=== PATIENT | female | born 1945 | race Caucasian/White ===

== ENCOUNTER 2018-06-05 11:24 | Emergency (ER) | payer MEDICARE, OTHER ==
[2018-06-05 12:16] VITALS: BP 141/86
--- NOTE | 2018-06-05 12:37 | UC ---
Complaint Female HPI - HPI Summary HPI Summary: Patient presents with an unremarkable past medical history. She presents today with complaints of 3 day onset dysuria and associated generalized body aches, mild abdominal and flank discomfort. She states she pushed fluids, and has been drinking cranberry juice and she though she has this "licked", she states these symptoms are consistent with previous Urinary tract infections. - History Of Current Complaint Chief Complaint: UCGU Stated Complaint: URINARY COMPLAINT Time Seen by Provider: 06/05/18 12:27 Hx Obtained From: Patient Onset/Duration: Gradual Onset, Lasting Days Timing: Intermittent Severity Initially: Mild Severity Currently: Mild Pain Intensity: 3 Character: Burning Aggravating Factor(s): Urination Associated Signs And Symptoms: Positive: Negative - Risk Factors Ectopic Risk Factor: Negative Ovarian Torsion Risk Factor: Negative - Allergies/Home Medications Allergies/Adverse Reactions: Allergies Allergy/AdvReac Type Severity Reaction Status Date / Time No Known Allergies Allergy Verified 06/05/18 12:17 PMH/Surg Hx/FS Hx/Imm Hx Previously Healthy: Yes Other History Of: Negative For: Anticoagulant Therapy - Surgical History Surgical History: Yes Surgery Procedure, Year, and Place: hysterectomy, polyp surgically removed from 1961 - Family History Known Family History: Positive: Other - Social History Occupation: Retired Lives: Alone Alcohol Use: Occasionally Alcohol Amount: 3 DRINKS PER WEEK Substance Use Type: None Smoking Status (MU): Former Smoker Amount Used/How Often: 4 CIGARETES PER DAY X 15 YEARS Have You Smoked in the Last Year: No When Did the Patient Quit Smoking/Using Tobacco: 37 YEARS AGO Review of Systems Constitutional: Negative Skin: Negative Eyes: Negative ENT: Negative Respiratory: Negative Cardiovascular: Negative Gastrointestinal: Abdominal Pain Genitourinary: Dysuria Motor: Negative Neurovascular: Negative Musculoskeletal: Negative Neurological: Negative Psychological: Negative Is Patient Immunocompromised?: No All Other Systems Reviewed And Are Negative: Yes Physical Exam Triage Information Reviewed: Yes Completion Of Physical Exam Limited Due To: Extremis Vital Signs: Initial Vital Signs Temp 98.4 F 06/05/18 12:14 Pulse 89 06/05/18 12:14 Resp 12 06/05/18 12:14 BP 141/86 06/05/18 12:14 Pulse Ox 99 06/05/18 12:14 Vital Signs Reviewed: Yes Eye Exam: Normal ENT Exam: Normal Dental Exam: Normal Neck exam: Normal Neck: Positive: 1 Respiratory Exam: Normal Cardiovascular Exam: Normal Abdominal Exam: Normal Musculoskeletal Exam: Normal Neurological Exam: Normal Psychological Exam: Normal Skin Exam: Normal Complaint Female Dx - Course Course Of Treatment: Patient UA was positive for infection, patient was treated with Keflex 500 mg bid x 7 days. - Differential Dx/Diagnosis Provider Diagnoses: uti Discharge - Sign-Out/Discharge Documenting (check all that apply): Patient Departure - Discharge Plan Condition: Stable Disposition: HOME Prescriptions: Cephalexin CAP* [Keflex CAP*] 500 mg PO BID #14 cap Patient Education Materials: Urinary Tract Infection in Older Adults (ED) Referrals: Cheri Wilkerson MD [Primary Care Provider] - Additional Instructions: Follow up with your doctor in three days. - Billing Disposition and Condition Condition: STABLE Disposition: Home
--- NOTE | 2018-06-07 18:29 | UC ---
- Progress Note Progress Note: Pt with UTI resistant to keflex sent Rx Macrobid please call pt for change in Rx [email or web address] 06/07/18 Discharge - Sign-Out/Discharge Documenting (check all that apply): Patient Departure - Discharge Plan Condition: Stable Disposition: HOME Prescriptions: Cephalexin CAP* [Keflex CAP*] 500 mg PO BID #14 cap Nitrofurantoin Monohyd/M-Cryst [Macrobid 100 mg Capsule] 100 mg PO BID #14 cap Patient Education Materials: Urinary Tract Infection in Older Adults (ED) Referrals: Cheri Wilkerson MD [Primary Care Provider] - Additional Instructions: Follow up with your doctor in three days. - Billing Disposition and Condition Condition: STABLE Disposition: Home
== END 2018-06-05 13:00 | disposition home or self-care (01) ==
LOC: UCEAST 11:24
DX: N39.0 Urinary tract infection, site not specified (principal); Z87.891 Personal history of nicotine dependence
CPT/HCPCS: 81003; 87077; 87086; 87186; 99212; G0463

== ENCOUNTER 2019-05-24 09:06 | Emergency (ER) | payer MEDICARE, OTHER ==
[2019-05-24 09:21] VITALS: BP 128/78
--- NOTE | 2019-05-24 10:33 | UC ---
Skin Complaint HPI - HPI Summary HPI Summary: 73-year-old woman comes with a chief complaint of a raised itchy vesicular rash that started right after she was working in the garden pulling weeds around [place]. Started couple days ago. It's now on both arms and her low back and also on her face. It is itchy. Feels well otherwise. - History of Current Complaint Chief Complaint: UCRash Time Seen by Provider: 05/24/19 10:28 Stated Complaint: POISON [place] Pain Intensity: 0 - Allergy/Home Medications Allergies/Adverse Reactions: Allergies Allergy/AdvReac Type Severity Reaction Status Date / Time No Known Allergies Allergy Verified 05/24/19 09:21 PMH/Surg Hx/FS Hx/Imm Hx Previously Healthy: Yes Other History Of: Negative For: Anticoagulant Therapy - Surgical History Surgical History: Yes Surgery Procedure, Year, and Place: hysterectomy, polyp surgically removed from 1961 - Family History Known Family History: Positive: Other - Social History Alcohol Use: None Alcohol Amount: 3 DRINKS PER WEEK Substance Use Type: None Smoking Status (MU): Former Smoker Amount Used/How Often: 4 CIGARETES PER DAY X 15 YEARS Have You Smoked in the Last Year: No When Did the Patient Quit Smoking/Using Tobacco: 37 YEARS AGO Review of Systems All Other Systems Reviewed And Are Negative: Yes Constitutional: Positive: Negative Skin: Positive: Other - SEE HPI Eyes: Positive: Negative ENT: Positive: Negative Respiratory: Positive: Negative Cardiovascular: Positive: Negative Gastrointestinal: Positive: Negative Motor: Positive: Negative Neurovascular: Positive: Negative Musculoskeletal: Positive: Negative Neurological: Positive: Negative Psychological: Positive: Negative Is Patient Immunocompromised?: No Physical Exam Triage Information Reviewed: Yes Appearance: Well-Appearing, No Pain Distress, Well-Nourished Vital Signs: Initial Vital Signs Temp 98 F 05/24/19 09:19 Pulse 81 05/24/19 09:19 Resp 16 05/24/19 09:19 BP 128/78 05/24/19 09:19 Pulse Ox 100 05/24/19 09:19 Vital Signs Reviewed: Yes Eye Exam: Normal Eyes: Positive: Conjunctiva Clear Neck: Positive: Supple Respiratory: Positive: No respiratory distress Musculoskeletal Exam: Normal Musculoskeletal: Positive: Strength Intact, ROM Intact Neurological: Positive: Alert Psychological: Positive: Age Appropriate Behavior Skin: Positive: Other - There is an her rash it's erythematous that slightly raised with some vesicles on both forearms and on the low back on both cheeks. The vesicles have clear fluid. Course/Dx - Diagnoses Provider Diagnosis: [place] dermatitis Discharge - Sign-Out/Discharge Documenting (check all that apply): Patient Departure All imaging exams completed and their final reports reviewed: No Studies - Discharge Plan Condition: Stable Disposition: HOME Prescriptions: methylPREDNISolone [Medrol Dosepak 4 MG*] 0 mg PO .SEE FELIX INSTRUCTION #1 felix Patient Education Materials: [place] (ED) Referrals: Cheri Wilkerson MD [Primary Care Provider] - Additional Instructions: FOLLOW UP WITH YOUR DOCTOR IF NOT COMPLETELY IMPROVED. GET RECHECKED SOONER IF YOUR CONDITION WORSENS OR ANY QUESTIONS OR CONCERNS. - Billing Disposition and Condition Condition: STABLE Disposition: Home
== END 2019-05-24 10:41 | disposition home or self-care (01) ==
LOC: UCEAST 09:06
DX: L23.7 Allergic contact dermatitis due to plants, except food (principal); Z87.891 Personal history of nicotine dependence
CPT/HCPCS: 99211; G0463

== ENCOUNTER 2019-11-19 09:59 | Emergency (ER) | payer MEDICARE, OTHER ==
--- OUTSIDE RECORDS SUMMARY | 2019-11-19 10:40 | XMS REPORT | Continuity of Care Document ---
:1945 External Reference #:[id number] Author Name Renee Alexandra, N.P. (transmitted by agent of provider Lorrie Avendaño) Address [address], [place] [address] Care Team Providers Name Role Phone [facility] Care Team Information Primary Operator [place] - Physical Therapist Cheri Wilkerson MD - Internal Care Team Information Primary Operator Medicine Problems Active Problems Provider Date Diverticular disease of colon Chelsea Velazco M.D., FACP Onset: 12/18/2010 Social History Type Date Description Comments Sex Unknown ETOH Use Occasionally consumes alcohol Tobacco Use Start: Unknown End: Patient is a former pt quit in 1978 Unknown smoker Tobacco Use Start: Unknown Smoked 4 cigs a day, started at age 18. Tobacco Use Start: Unknown Off and on smoker.` Tobacco Use Start: Unknown Not currently exposed to second hand smoke Smoking Status Reviewed: 11/06/19 Not currently exposed to second hand smoke Exercise Exercises regularly Type/Frequency Allergies, Adverse Reactions, Alerts Description No Known Drug Allergies Medications Active Medications SIG Qnty Indications Ordering Provider Date Fluticasone 2 sprays each 32gm Renee Varn, 11/06/2019 Propionate nostril qd. N.P. 50mcg/Act Suspension Trazodone HCL 1 tablet at 30tabs G47.00 Renee Varn, 11/06/2019 50mg bedtime as needed N.P. Tablets Vitamin B12 1 by mouth every 30tabs Renee Varn, 03/20/2019 1000mcg day N.P. Tablets ER Alprazolam one by mouth up to 10tabs F41.9 Renee Varn, 11/23/2018 0.25mg three times daily N.P. Tablets as needed for anxiety Clobetasol apply topically 30gm L28.0 Renee Alexandra, 09/11/2014 Propionate twice a day up to N.P. 0.05% 2 weeks, stop for Ointment 2 weeks, and repeat, as needed Probiotic 1 po qd prn 30caps Unknown Capsules Vitamin D by mouth everyday Unknown 1000Unit Tablets Multi For Her once a day Unknown Tablets History Medications Medrol .See Michael Instruction 1units Unknown 05/24/2019 - 11/05/2019 4mg TBPK Immunizations CPT Code Status Date Vaccine Reaction Lot # [id number] Given 10/06/2019 Fluzone High Dose pharmacy administered [id number] Given 11/25/2018 Fluzone High Dose 41934 Given 10/23/2016 Influ Virus Vaccine, no immediate reaction [id number] Quadrivalent, Split noted ,,.hh Virus, [place] [address] Given 10/21/2015 Pneumococcal Conjugate [id number] Vaccine 13 Valent For Intramuscular Use 46185 Given 10/21/2015 Flu Vaccine Split Virus [id number] Preservative Free For Indiv 3Yr Older 41542 Given 09/11/2014 Flu Vaccine Split Virus [id number] Preservative Free For Indiv 3Yr Older 43891 Given 12/17/2011 Pneumonia Vaccine [id number] 00694 Given 12/17/2011 Tdap - [id number] Tetanus/Diptheria/Acellul ar Pertussis 85007 Given 12/17/2011 Influenza Virus 3Yrs & [id number] Over 67792 Given 12/17/2010 Influenza Virus 3Yrs & Over 75601 Given 05/05/2010 Zoster (Zostavax) Vital Signs Date Vital Result Comment 11/06/2019 1:05pm Height 60.5 inches 5'0.50" Weight 118.00 lb Heart Rate 71 /min BP Systolic Sitting 160 mmHg BP Diastolic Sitting 84 mmHg Body Temperature 97.4 F O2 % BldC Oximetry 95 % BMI (Body Mass Index) 22.7 kg/m2 03/20/2019 3:07pm Height 60.5 inches 5'0.50" Weight 115.00 lb Heart Rate 69 /min BP Systolic 133 mmHg BP Diastolic 79 mmHg Body Temperature 98.0 F O2 % BldC Oximetry 97 % BMI (Body Mass Index) 22.1 kg/m2 Results Test Acquired Date Facility Test Result H/L Range Note Laboratory test 08/01/2019 [facility] Vitamin B12 531 pg/mL Normal 180-914 [address] [place] [address] [phone] Laboratory test 05/11/2019 [facility] Surgical SEE RESULT [address] [place] [address] [phone] Normal Range 180 to 914 Indeterminate Range 145 to 180 Deficient Range <145 2 SEE RESULT BELOW Name: GRICELDA MARQUEZ : [address]: Raghu Kaye DO Acct: [id number] Unit: [id number] AGE: 73 Location: ENDO Re05/11/19 SEX: F Status: DEP REF SPEC: [id number] RALF: 05/11/19-1215 [facility] DR: Raghu Kaye DO REQ: [id number] RECD: 05/11/19 STATUS: LÓPEZ ROBERT DR: Renee Alexandra INTERNET MARKETING DIRECTOR _ ORDERED: LEVEL 4 FINAL DIAGNOSIS Colon, transverse, biopsy: -- Tubular adenoma. -- No high grade dysplasia or malignancy. CLINICAL HISTORY History of polyps POST-OPERATIVE DIAGNOSIS Colonoscopy: to cecum; good prep; biopsy polypectomy transverse polyp; moderate diverticulosis coli left greater than right GROSS DESCRIPTION The specimen is received in formalin labeled, Biopsy Transverse Colon Polyp, and consists of a 0.4 x 0.3 x 0.3 cm anne-pink polypoid soft tissue fragment which is submitted entirely in one cassette. Signed by and Reported on: Tiffani Sims MD 05/12/19 1511 END OF REPORT DEPARTMENT OF PATHOLOGY, [address] [place] [address] Nav Buitrago M.D. Director [facility] # [id number] Procedures Date Code Description Status 05/11/2019 [id number] Colonoscopy Completed 02/10/2018 [id number] Mammogram Completed 01/26/2018 [id number] Diabetic Retinal Eye Exam Completed 12/28/2016 [id number] Mammogram Completed 05/13/2015 [id number] Mammogram Completed 04/18/2015 [id number] Diabetic Retinal Eye Exam Completed 03/08/2014 [id number] Bone Mineral Density Test Completed 03/08/2014 [id number] Mammogram Completed 04/10/2013 [id number] Colonoscopy Completed 12/22/2011 [id number] Bone Mineral Density Test Completed 06/11/2011 [id number] Mammogram Completed 11/17/2010 [id number] Mammogram Completed 05/15/2010 [id number] Mammogram Completed 07/16/2008 [id number] Colonoscopy Completed 04/12/2008 [id number] Bone Mineral Density Test Completed Medical Devices Description No Information Available Encounters Description No Information Available Assessments Date Code Description Provider 11/06/2019 H91.93 Unspecified hearing loss, bilateral Renee Alexandra, N.P. 11/06/2019 G47.00 Insomnia, unspecified Renee Alexandra, N.P. Plan of Treatment 11/06/2019 - Renee Alexandra N.P.H91.93 Unspecified hearing loss, bilateralComments:I have generated a hearing evaluation for you.G47.00 Insomnia , unspecifiedNew Medication:Trazodone HCL 50 mg - 1 tablet at bedtime as neededComments:For your insomnia I have sent in a prescription for Trazodone 50 mg. You may take 1 at bedtime as needed. Be sure you have a dark quiet room to sleep in. Avoid reading or watching television in bed. Stay off all electronic devices for at least 2 hours before bed. Functional Status Description No Information Available Mental Status Description No Information Available Referrals Description No Information Available
[2019-11-19 10:45] VITALS: BP 154/86
--- NOTE | 2019-11-19 10:59 | UC ---
Ear Complaint HPI - HPI Summary HPI Summary: 74-year-old woman comes in with chief complaint of right ear pain. She's been having upper respiratory tract infection symptoms for days. She was developing pressure in her right ear. Overnight the pain got very bad. She felt a pop in her right ear and then the pain dissipated. Did not have any drainage from the right ear. 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 She does wear hearing aids. Since she's been having right ear pain she's not using her right hearing aid. No complaint of any fevers or cough or chest congestion. She does have rhinorrhea. - History of Current Complaint Chief Complaint: UCRespiratory Stated Complaint: EAR PAIN HEAD CONGESTION Time Seen by Provider: 11/19/19 10:41 Pain Intensity: 5 - Allergies/Home Medications Allergies/Adverse Reactions: Allergies Allergy/AdvReac Type Severity Reaction Status Date / Time No Known Allergies Allergy Verified 11/19/19 10:45 Home Medications: Home Medications Multivitamin [Multivitamins] 1 cap PO DAILY 11/19/19 [History Confirmed 11/19/19 ] Naproxen Sodium [Naproxen 220 mg] 440 mg PO ONCE 11/19/19 [History Confirmed ] PMH/Surg Hx/FS Hx/Imm Hx Previously Healthy: Yes - OSAGE,HAS HEARING AIDS Other History Of: Negative For: Anticoagulant Therapy - Surgical History Surgical History: Yes Surgery Procedure, Year, and Place: hysterectomy, polyp surgically removed from 1961 - Family History Known Family History: Positive: Other - Social History Alcohol Use: Occasionally Alcohol Amount: 3 DRINKS PER WEEK Substance Use Type: None Smoking Status (MU): Former Smoker Amount Used/How Often: 4 CIGARETES PER DAY X 15 YEARS Have You Smoked in the Last Year: No When Did the Patient Quit Smoking/Using Tobacco: 37 YEARS AGO Review of Systems All Other Systems Reviewed And Are Negative: Yes Constitutional: Positive: Other - SEE HPI Skin: Positive: Negative Eyes: Positive: Negative ENT: Positive: Ear Ache, Nasal Discharge Respiratory: Positive: Negative Cardiovascular: Positive: Negative Gastrointestinal: Positive: Negative Motor: Positive: Negative Neurovascular: Positive: Negative Musculoskeletal: Positive: Negative Neurological: Positive: Negative Psychological: Positive: Negative Is Patient Immunocompromised?: No Physical Exam Triage Information Reviewed: Yes Appearance: Well-Appearing, No Pain Distress, Well-Nourished Vital Signs: Initial Vital Signs Temp 97.6 F 11/19/19 10:40 Pulse 68 11/19/19 10:40 Resp 18 11/19/19 10:40 BP 154/86 11/19/19 10:40 Pulse Ox 99 11/19/19 10:40 Vital Signs Reviewed: Yes Eye Exam: Normal Eyes: Positive: Conjunctiva Clear ENT: Positive: Pharyngeal erythema, Nasal congestion, TM bulging - RT, TM red - RT Neck: Positive: Supple Respiratory: Positive: Lungs clear, Normal breath sounds, No respiratory distress Cardiovascular: Positive: RRR Musculoskeletal: Positive: Strength Intact, ROM Intact Neurological: Positive: Alert, Muscle Tone Normal Psychological: Positive: Age Appropriate Behavior Skin Exam: Normal Ear Complaint Course/Dx - Course Course Of Treatment: Patient sees ENT Dr. Amador. She will follow-up with him this week. - Differential Dx/Diagnosis Provider Diagnosis: Right otitis media Discharge ED - Sign-Out/Discharge Documenting (check all that apply): Patient Departure All imaging exams completed and their final reports reviewed: No Studies - Discharge Plan Condition: Stable Disposition: HOME Prescriptions: Amoxicillin/Clavulanate TAB* [Augmentin TAB 875*] 875 mg PO BID #20 tab Patient Education Materials: Ear Infection (ED) Referrals: Chelsea Velazco MD [Primary Care Provider] - Isaac Amador MD [Medical Doctor] - Additional Instructions: FOLLOW UP WITH YOUR ENT DOCTOR THIS WEEK. GET REEVALUATED SOONER IF NOT IMPROVED OR WORSE OR ANY QUESTIONS OR CONCERNS. - Billing Disposition and Condition Condition: STABLE Disposition: Home
== END 2019-11-19 11:05 | disposition home or self-care (01) ==
LOC: UCEAST 09:59
DX: H66.91 Otitis media, unspecified, right ear (principal); R09.81 Nasal congestion; J34.89 Other specified disorders of nose and nasal sinuses; Z87.891 Personal history of nicotine dependence
CPT/HCPCS: 99212; G0463

== ENCOUNTER 2019-12-24 13:34 | Inpatient (IN) | payer MEDICARE, OTHER ==
--- NOTE | 2019-12-24 13:54 | ED ---
Abdominal Pain/Female - HPI Summary HPI Summary: 74 y/o female presented to [facility] for right lower quadrant abdominal pain present for days. She endorsed shortness of breath and a fever of 103F but denies rhinorrhea, sore throat, and cough. Her notes that she is in better condition than she was about an hour ago. She suspected a UTI and has previously seen Dr. Velazco for cultures that returned negative. She endorses history of diverticulitis and a polypectomy, and notes that she still has her appendix. She also notes family history of diverticulitis but no family history of hypertension, hyperlipidemia, or diabetes. 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 Negative: Cough Allergies/Adverse Reactions: Allergies Allergy/AdvReac Type Severity Reaction Status Date / Time No Known Allergies Allergy Verified 12/24/19 13:45 Home Medications: Home Medications L.acidoph,Paracasei, B.lactis [Probiotic] 1 each PO DAILY 12/24/19 [History Confirmed 12/24/19] traZODone TAB* [Desyrel TAB*] 50 mg PO BEDTIME PRN 12/24/19 [History Confirmed 12/24/19] PMH/Surg Hx/FS Hx/Imm Hx Endocrine/Hematology History: Reports: Hx Anemia - WHEN WAS MENSTRUATING Denies: Hx Anticoagulant Therapy, Hx Diabetes, Hx Thyroid Disease Cardiovascular History: Denies: Hx Hypercholesterolemia, Hx Hypertension, Hx Pacemaker/ICD, Hx Peripheral Vascular Disease GI History: Reports: Other GI Disorders - HISTORY OF DIVERTICULITIS/HX OF ELEVATED LIVER ENZYMES 15 YEARS Musculoskeletal History: Denies: Hx Arthritis, Hx Rheumatoid Arthritis, Hx Osteoporosis - OSTEOPENIA Sensory History: Reports: Hx Hearing Aid Denies: Hx Cataracts, Hx Contacts or Glasses, Hx Glaucoma Opthamlomology History: Denies: Hx Cataracts, Hx Contacts or Glasses, Hx Glaucoma Neurological History: Reports: Hx Migraine - HX OF PRIOR TO MENOPAUSE Denies: Hx Headaches, Hx Seizures, Hx Transient Ischemic Attacks (TIA) Psychiatric History: Denies: Hx Anxiety, Hx Depression, Hx Panic Disorder - Cancer History Hx Chemotherapy: No Hx Radiation Therapy: No - Surgical History Surgery Procedure, Year, and Place: hysterectomy, polyp surgically removed from 1961 Hx Anesthesia Reactions: No Infectious Disease History: No Infectious Disease History: Reports: Traveled Outside the [place] in Last 30 Days - Family History Known Family History: Negative: Hypertension, Diabetes - Social History Alcohol Use: Occasionally Alcohol Amount: 3 DRINKS PER WEEK Substance Use Type: Reports: None Smoking Status (MU): Former Smoker Amount Used/How Often: 4 CIGARETES PER DAY X 15 YEARS Have You Smoked in the Last Year: No Review of Systems Positive: Fever Negative: Sore Throat, Nasal Discharge Positive: Shortness Of Breath. Negative: Cough All Other Systems Reviewed And Are Negative: Yes Physical Exam - Summary Physical Exam Summary: VITAL SIGNS: Reviewed. GENERAL: Patient is a well-developed and nourished female who is lying comfortable in the stretcher. Patient is not in any acute respiratory distress. Patient is febrile. HEAD AND FACE: No signs of trauma. No ecchymosis, hematomas or skull depressions. No sinus tenderness. EYES: PERRLA, EOMI x 2, No injected conjunctiva, no nystagmus. EARS: Hearing grossly intact. Ear canals and tympanic membranes are within normal limits. MOUTH: Oropharynx within normal limits. NECK: Supple, trachea is midline, no adenopathy, no JVD, no carotid bruit, no c- spine tenderness, neck with full ROM. CHEST: Symmetric, no tenderness at palpation. LUNGS: Clear to auscultation bilaterally. No wheezing or crackles. CVS: Regular rate and rhythm, S1 and S2 present, no murmurs or gallops appreciated. ABDOMEN: Soft, right lower quadrant tenderness with guarding but no rebound. No signs of distention. No masses palpated. Bowel sounds are normal. EXTREMITIES: FROM in all major joints, no edema, no cyanosis or clubbing. NEURO: Alert and oriented x 3. No acute neurological deficits. Speech is normal and follows commands. SKIN: Dry and warm Triage Information Reviewed: Yes Vital Signs On Initial Exam: Initial Vitals Temp Pulse Resp BP Pulse Ox 101.9 F 132 16 114/96 94 12/24/19 13:40 12/24/19 13:40 12/24/19 13:40 12/24/19 13:40 12/24/19 13:40 Vital Signs Reviewed: Yes Procedures - Sedation Patient Received Moderate/Deep Sedation with Procedure: No Diagnostics - Vital Signs Vital Signs Temp Pulse Resp BP Pulse Ox 12/24/19 13:40 101.9 F 132 16 114/96 94 - Laboratory Result Diagrams: 12/25/19 06:30 12/25/19 06:30 Lab Statement: Any lab studies that have been ordered have been reviewed, and results considered in the medical decision making process. - Radiology chest x-ray Radiology Interpretation Completed By: Radiologist Summary of Radiographic Findings: IMPRESSION: LINEAR LEFT LOWER LUNG ZONE AND LATERAL COSTOPHRENIC ANGLE AIRSPACE. OPACIFICATION (ATELECTASIS VERSUS INFILTRATE). This report was reviewed by the ED physician. - CT abdominal/pelvis CT Interpretation Completed By: Radiologist Summary of CT Findings: IMPRESSION: 1. SUSPECT UNCOMPLICATED DIVERTICULITIS AT LEAST INVOLVING THE DISTAL DESCENDING COLON. 2. AN 8 MM LOBULATED PULMONARY NODULE IN THE LEFT LOWER LOBE IS NEW FROM 2009. A. DEDICATED CHEST CT IS REQUIRED TO GUIDE FLEISCHNER CRITERIA RECOMMENDATIONS (UNKNOWN. MULTIPLICITY). 3. PERIPORTAL EDEMA. This report was reviewed by the ED physician. - EKG 1435 Cardiac Rate: Tachycardia EKG Rhythm: Sinus Tachycardia Summary of EKG Findings: Sinus tachycardia at 107bpm. Q wave in leads III, aVF. This EKG was reviewed and interpreted by the ED physician. Abdominal Pain Fem Course/Dx - Course Course Of Treatment: 74 y/o female presented to [facility] for right lower quadrant abdominal pain present for days. She endorsed shortness of breath and a fever of 103F but denies rhinorrhea, sore throat, and cough. Her notes that she is in better condition than she was about an hour ago. She suspected a UTI and has previously seen Dr. Velazco for cultures that returned negative. She endorses history of diverticulitis and polypectomy, and notes that she still has her appendix. She also notes family history of diverticulitis but no family history of hypertension, hyperlipidemia, or diabetes. In the ED course the patient was placed in a site monitor, IV access was obtained, IV fluids started. Blood test w/o a significant abnormality except for INR 1.26, sodium 132, potassium 3.2, glucose 118, magnesium 1.6, total bili 1.5, troponin 0.10, BNP 203, CRP of 25.8. Urinalysis positive for nitrates. Therefore, the patient will be started in Rocephin for the UTI. CXR IMPRESSION: LINEAR LEFT LOWER LUNG ZONE AND LATERAL COSTOPHRENIC ANGLE AIRSPACE OPACIFICATION. Abdominal and pelvic CT IMPRESSION: 1. SUSPECT UNCOMPLICATED DIVERTICULITIS AT LEAST INVOLVING THE DISTAL DESCENDING COLON. (FAT PLANES SURROUNDING THE SIGMOID COLON ARE EFFACED AND DIFFICULT TO EVALUATE). COLONOSCOPY FOLLOWING SYMPTOMATIC RESOLUTION IS SUGGESTED. 2. AN 8 MM LOBULATED PULMONARY NODULE IN THE LEFT LOWER LOBE IS NEW FROM 2010. A. DEDICATED CHEST CT IS REQUIRED TO GUIDE FLEISCHNER CRITERIA RECOMMENDATIONS (UNKNOWN. MULTIPLICITY). 3. PERIPORTAL EDEMA. Patient was given Cipro and flagyl for diverticulitis. She was given ASA for increased troponin. I discuss my physical exam and test results with Dr. Cleary from the hospitalist services and he agrees to admit the patient to his services. The patient is hemodynamically stable alert and oriented x 3. - Diagnoses Provider Diagnoses: UTI (urinary tract infection), PNA (pneumonia), Diverticulitis, Elevated troponin - Provider Notifications Discussed Care Of Patient With: Bell Cleary Time Discussed With Above Provider: 17:16 Instructed by Provider To: Other - Patient's case was discussed with Dr. Cleary , who agrees to admit the patient. Discharge ED - Sign-Out/Discharge Documenting (check all that apply): Patient Departure - admit - Discharge Plan Condition: Stable Disposition: ADMITTED TO [facility] - Billing Disposition and Condition Condition: STABLE Disposition: Admitted to [facility] - Attestation Statements Document Initiated by Francescoe: Yes Documenting Scribe: Milan De Souza Provider For Whom Laurent is Documenting (Include Credential): Taras Carlos MD Scribe Attestation: Milan Waller, scribed for Taras Carlos MD on 12/25/19 at 1335. Scribe Documentation Reviewed: Yes Provider Attestation: The documentation as recorded by the Milan fuller accurately reflects the service I personally performed and the decisions made by me, Taras Carlos MD Status of Scribe Document: Viewed
[2019-12-24] MEDS ORDERED: NS 0.9% 1000 ML** 1,000 ML IV ONE (14:07)
[2019-12-24 14:36] LABS: ABS Basophils 0.1 10^3/ul (0-0.2); ABS Lymphocytes 0.3 10^3/ul (1.0-4.8); ABS Monocytes 0.5 10^3/ul (0-0.8); ABS Neutrophils 9.7 10^3/ul (1.5-7.7); Eosinophil % 0.1 %; Hematocrit 37 % (35-47); Hemoglobin 12.6 g/dL (12.0-16.0); Lymphocyte % 3.2 %; Mean Corpuscular HGB Conc 34 g/dL (31-36); Mean Corpuscular Hemoglobin 30 pg (27-31); Mean Corpuscular Volume 89 fL (80-97); Mean Platelet Volume 10.2 fL (7.4-10.4); Platelet Count 168 10^3/uL (150-450); Red Cell Distribution Width 14 % (10-15); White Blood Count 10.7 10^3/uL (3.5-10.8)
[2019-12-24 14:57] LABS: INR 1.26 (0.82-1.09)
[2019-12-24 15:02] LABS: ALT 20 U/L (7-52); AST 23 U/L (13-39); Albumin 3.7 g/dL (3.2-5.2); Albumin/Globulin Ratio 1.6 (1-3); Alkaline Phosphatase 92 U/L (34-104); Amylase 23 U/L (29-103); Anion Gap 7 mmol/L (2-11); BUN/Creatinine Ratio 31.7 (8-20); Blood Urea Nitrogen 19 mg/dL (6-24); CO2 Carbon Dioxide 22 mmol/L (22-32); Calcium 9.4 mg/dL (8.6-10.3); Chloride 103 mmol/L (101-111); Creatine Kinase 33 U/L (10-223); EGFR African American 117.6 (>60); EGFR Non-African American 97.2 (>60); Globulin 2.3 g/dL (2-4); Glucose 118 mg/dL (70-100); Magnesium 1.6 mg/dL (1.9-2.7); Potassium 3.2 mmol/L (3.5-5.0); Sodium 132 mmol/L (135-145)
--- OUTSIDE RECORDS SUMMARY | 2019-12-24 15:02 | XMS REPORT | Continuity of Care Document ---
:1945 External Reference #:[id number] Author Name Chelsea Velazco M.D., FACP (transmitted by agent of provider Lorrie Avendaño) Address [address], [place] [address] Care Team Providers Name Role Phone Francisco Physical Therapy Care Team Information Gl[employer]ger [phone] [place] - Physical Therapist Cheri Wilkerson MD - Internal Care Team Information [employer] Medicine Problems Active Problems Provider Date Diverticular [...] to second hand smoke Smoking Status Reviewed: 12/22/19 Not currently exposed to second hand smoke Exercise Exercises regularly Type/Frequency Allergies, Adverse Reactions, Alerts Description No Known Drug Allergies Medications Active Medications SIG Qnty Indications Ordering Date Provider Ciprofloxacin HCL 1 by mouth twice 6tabs R30.0 Chelsea Mora, 12/22/2019 250mg a day M.DPia, FACP Tablets Fluticasone Propionate 2 sprays each 32gm Renee Varn, 11/06/2019 nostril qd. N.P. 50mcg/Act Suspension Trazodone HCL 1 tablet at 30tabs G47.00 Renee Varn, 11/06/2019 50mg bedtime as needed N.P. Tablets Vitamin B12 1 by mouth every 30tabs Renee Varn, 03/20/2019 1000mcg day N.P. Tablets ER Alprazolam one by mouth up 10tabs F41.9 Renee Alexandra, 11/23/2018 0.25mg Tablets to three times N.P. daily as needed for anxiety Clobetasol Propionate apply topically 30gm L28.0 Renee Alexandra, 09/11/2014 twice a day up to N.P. 0.05% Ointment 2 weeks, stop for 2 weeks, and repeat, as needed Probiotic 1 po qd prn 30caps Unknown Capsules Vitamin D by mouth everyday Unknown 1000Unit Tablets Multi For Her once a day Unknown Tablets Immunizations CPT Code Status Date Vaccine Reaction Lot # [id number] Given 10/06/2019 Fluzone High Dose pharmacy administered 05664 Given 11/25/2018 Fluzone High Dose 62700 Given 10/23/2016 Influ Virus Vaccine, no immediate reaction [id number] Quadrivalent, Split noted ,,.hh Virus, [place] [address] Given 10/21/2015 Pneumococcal Conjugate [id number] Vaccine 13 Valent For Intramuscular Use 93315 Given 10/21/2015 Flu Vaccine Split Virus [id number] Preservative Free For Indiv 3Yr Older 69042 Given 09/11/2014 Flu Vaccine Split Virus [id number] Preservative Free For Indiv 3Yr Older 46719 Given 12/17/2011 Pneumonia Vaccine [id number] 11129 Given 12/17/2011 Tdap - [id number] Tetanus/Diptheria/Acellul ar Pertussis 32969 Given 12/17/2011 Influenza Virus 3Yrs & [id number] Over 39561 Given 12/17/2010 Influenza Virus 3Yrs & Over 81993 Given 05/05/2010 Zoster (Zostavax) Vital Signs Date Vital Result Comment 12/22/2019 11:18am Height 60.5 inches 5'0.50" Weight 117.00 lb Heart Rate 71 /min BP Systolic Sitting 138 mmHg BP Diastolic Sitting 87 mmHg O2 % BldC Oximetry 100 % BMI (Body Mass Index) 22.5 kg/m2 11/06/2019 1:05pm Height 60.5 inches 5'0.50" Weight 118.00 lb Heart Rate 71 /min BP Systolic Sitting 160 mmHg BP Diastolic Sitting 84 mmHg Body Temperature 97.4 F O2 % BldC Oximetry 95 % BMI (Body Mass Index) 22.7 kg/m2 Results Test Acquired Date Facility Test Result H/L Range Note Laboratory test 08/01/2019 [facility] Vitamin B12 531 pg/mL Normal 180-914 [address] [place] [address] [phone] 1 Normal Range 180 to 914 Indeterminate Range 145 to 180 Deficient Range <145 Procedures Date Code Description Status 05/11/2019 38981565 Colonoscopy Completed 02/10/2018 [id number] Mammogram Completed 01/26/2018 [id number] Diabetic Retinal Eye Exam Completed 12/28/2016 [id number] Mammogram Completed 05/13/2015 [id number] Mammogram Completed 04/18/2015 [id number] Diabetic Retinal Eye Exam Completed 03/08/2014 [id number] Bone Mineral Density Test Completed 03/08/2014 [id number] Mammogram Completed 04/10/2013 [id number] Colonoscopy Completed 12/22/2011 [id number] Bone Mineral Density Test Completed 06/11/2011 [id number] Mammogram Completed 11/17/2010 [id number] Mammogram Completed 05/15/2010 [id number] Mammogram Completed 07/16/2008 [id number] Colonoscopy Completed 04/12/2008 [id number] Bone Mineral Density Test Completed Medical Devices Description No Information Available Encounters Type Date Location Provider Dx Diagnosis Office Visit 11/06/2019 Software Sales Manager Internal Renee Alexandra, G47.00 Insomnia, 1:00p Medicine - Ccmob N.P. unspecified H69.90 Unspecified Eustachian tube disorder, unspecified ear H91.93 Unspecified hearing loss, bilateral Assessments Date Code Description Provider 12/22/2019 R30.0 Dysuria Chelsea Velazco M.D., FACP 11/06/2019 G47.00 Insomnia, unspecified Renee Alexandra, N.P. 11/06/2019 H69.90 Unspecified Eustachian tube disorder, Renee Alexandra, N.P. unspecified ear 11/06/2019 H91.93 Unspecified hearing loss, bilateral Renee Arsenion, N.P. Plan of Treatment 12/22/2019 - Chelsea Velazco M.D., FACPR30.0 DysuriaNew Medication:Ciprofloxacin HCL 250 mg - 1 by mouth twice a dayComments:URINARY SYMPTOMS:It is possible that your symptoms are consistent with an uncomplicated UTI, howeverthere was not musch evidence on examination of your urine today. I understand that as of this morning you are not having the burning sensation. Should this recur, take the antibiotic. If you continue to be fine, don't.(Cipro sent to to your pharmacy.)You should do your best to keep well hydrated. There is a substance in cranberries that makes the bacteria common to these infections less "sticky" so you may want to try drinking crnberry juice.Call back if symptoms do not fully resolve: should consider a pelvic exam under such circumstances. Functional Status Description No Information Available Mental Status Description No Information Available Referrals Description No Information Available
--- OUTSIDE RECORDS SUMMARY | 2019-12-24 15:02 | XMS REPORT | Continuity of Care Document ---
:1945 External Reference #:[id number] Author Name Estela Benoit PA-C Address [address] [place] [address] Care Team Providers Name Role Phone Chelsea Velazco M.D. 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 Social History Type Date Description Comments Sex Unknown Tobacco Use Start: Unknown End: Former Cigarette Smoker Packs for 13 years Unknown Daily 1/2 Tobacco Use Start: Unknown quit at age 32 Tobacco Use Start: Unknown End: current.no Unknown Tobacco Use Start: Unknown End: current.no Unknown Smokeless Tobacco current.no ETOH Use Current Alcohol Use Occasionally Tobacco Use Start: Unknown End: Patient is a former smoker Unknown Smoking Status Reviewed: 11/23/19 Patient is a former smoker Allergies, Adverse Reactions, Alerts Description No Known Drug Allergies Medications Active Medications SIG Qnty Indications Ordering Provider Date Prednisone 3 tabs po every 18tabs H65.01 Isaac Pisano 11/24/2019 10mg Tablets day x3 d, then 2 MD Perry tabs po every day x3d, then 1 tab po qd x3d, then off Fluticasone Propionate 2 sprays each 16gm Isaac Pisano 03/03/2018 nostril daily MD Perry 50mcg/Act Suspension Multivitamins 1 tab daily Unknown Rhinocort Aqua as needed Unknown Amoxicillin/Clavulanat 1 by mouth twice Unknown e Potassium a day for 10 875-125mg days Tablets Immunizations Description No Information Available Vital Signs Date Vital Result Comment 11/24/2019 9:01am Weight 122.00 lb Weight 55.339 kg Height 61.50 inches 5'1.50" Height in cm's 156.2 cm BMI (Body Mass Index) 22.7 kg/m2 04/20/2018 2:38pm Weight 122.00 lb Weight 55.339 kg Height 61.50 inches 5'1.50" Height in cm's 156.2 cm BMI (Body Mass Index) 22.7 kg/m2 Results Description No Information Available Procedures Date Code Description Status 11/24/2019 05326 Tympanometry Completed Medical Devices Description No Information Available Encounters Description No Information Available Assessments Date Code Description Provider 11/24/2019 H65.01 Acute serous otitis media, right ear BALWINDER Watts-C Plan of Treatment 11/24/2019 - BALWINDER Watts-CH65.01 Acute serous otitis media, right earNew Medication:Prednisone 10 mg - 3 tabs po every day x3 d, then 2 tabs po every day x3d, then 1 tab po qd x3d, then off Functional Status Description No Information Available Mental Status Description No Information Available Referrals Description No Information Available
[2019-12-24] MEDS ORDERED: Magnesium Sulfate 1 GM IV* 1 GM/100 ML BAG IV ONE (15:14)
[2019-12-24] MEDS ORDERED: cefTRIAXone(*) 1 GM in NS 0.9% 50 ML* 50 ML IVPB ONE (16:04)
[2019-12-24 16:06] LABS: Urine Bacteria 1+ (Absent); Urine Red Blood Cell 1+(3-5/hpf) (Absent); Urine Squamous Epithelial Cell Present (Absent); Urine White Blood Cell 3+(>20/hpf) (Absent)
[2019-12-24 16:25] LABS: Urine Appearance Cloudy; Urine Color Straw; Urine Ketones Negative (Negative); Urine Urobilinogen Negative (Negative)
[2019-12-24 16:26] LABS: Urine Bilirubin Negative (Negative); Urine Blood 2+ (Negative); Urine Glucose Negative (Negative); Urine Nitrite Positive (Negative); Urine Protein 1+(30 mg/dL) (Negative)
[2019-12-24] MEDS ORDERED: Iohexol 300* (CONTRAST) 10 ML SDV IV ONE (16:39)
[2019-12-24] MEDS ORDERED: Ciprofloxacin 400MG IVPREMIX(* 400 MG/200 ML BAG IVPB ONE (17:15)
[2019-12-24] MEDS ORDERED: metroNIDAZOLE TAB* 250 MG PO ONE (17:15)
[2019-12-24] MEDS ORDERED: Piperacillin/Tazobac ADVAN(*) 3.375 GM in NS 0.9% 100 ML* 100 ML IVPB ONE (17:50)
[2019-12-24] MEDS ORDERED: PROCHLORPERAZINE INJ 5 MG/ML 2 ML VIAL IV PRN (17:51)
[2019-12-24] MEDS ORDERED: Magnesium Sulfate 2 GM IV* 2 GM/50 ML BAG IVPB ONE (17:51)
[2019-12-24] MEDS ORDERED: NS 0.9% 1000 ML** 1,000 ML IV SCH (18:00)
[2019-12-24] MEDS ORDERED: Zosyn per Pharmacy* NOTE FOLLOW UP SCH (18:00)
[2019-12-24] MEDS: Acetaminophen TAB* 325 MG PO PRN (18:29)
[2019-12-24 18:37] LABS: Troponin I 0.39 ng/mL (<0.03)
--- NOTE | 2019-12-24 20:05 | HP ---
CC: Dr. Chelsea Velazco * HISTORY AND PHYSICAL: DATE OF ADMISSION: 12/24/19 TIME OF EVALUATION: 5:30 p.m. PRIMARY CARE PROVIDER: Chelsea Velazco MD. CHIEF COMPLAINT: Burning urination. HISTORY OF PRESENT ILLNESS: Ms. Marquez is a 74-year-old female with past medical history of diverticulosis, osteopenia, who presents to the emergency room with complaints of abdominal pain and burning with urination. The patient has recently returned from a trip to [place] and she states that she developed initially burning with urination. She was seen by her primary care provider on 12/22/19, and at that time, her urinary symptoms were improving, so she initially did not get the ciprofloxacin that her PCP had prescribed. She states that today she felt very poor with right lower quadrant pain, fever up to 103, and shaking chills. She denies nausea, vomiting, or diarrhea. There is no chest pain, shortness of breath, or palpitations and she states that dysuria has resumed today, so she actually went and picked up her ciprofloxacin but has not taken it yet. PAST MEDICAL HISTORY: 1. Diverticulosis with prior history of diverticulitis. 2. Colon polyps. 3. Osteopenia. MEDICATIONS: The patient does not have her medication list with her at this time, but as per her PCP's note, she takes only a multivitamin once a day. ALLERGIES: No known drug allergies. FAMILY HISTORY: The patient states that her parents of old age. SOCIAL HISTORY: The patient was a smoker since age 18 and she quit in 1978. No history of alcohol or drug use. Surrogate decision maker is her son Rodriguez Smallwood, phone number is [phone]. REVIEW OF SYSTEMS: A 14-point review of systems was performed, and all the pertinent negatives and positive findings are in the HPI. PHYSICAL EXAMINATION GENERAL: The patient is a pleasant, elderly lady, lying in the ED stretcher, in no acute distress. VITAL SIGNS: Temperature 101.9, heart rate 90, respiratory rate 16, oxygen saturation 95% on room air, and blood pressure is 105/64. HEENT: Pupils are equal. Moist mucous membranes. CHEST: Breath sounds bilaterally with no added sounds. CVS: Normal S1, S2. Regular rate and rhythm. ABDOMEN: Soft, nondistended. Mild right lower quadrant tenderness with no guarding or rebound. Bowel sounds are present. EXTREMITIES: No edema. NEURO: The patient is alert, awake, oriented x3. Speech is clear. She is a little hard of hearing but is able to understand our conversations. She can move all 4 extremities. Face is symmetric. Speech is clear. LABORATORY AND IMAGING DATA: The patient had a CBC that showed WBC 10.7, hemoglobin 12.6, hematocrit 37, platelets of 168 with 90% neutrophils. INR 1.2. Chemistry showed sodium 132, potassium 3.2, chloride 103, bicarb 22, BUN 19, creatinine of 0.6, glucose of 118, lactic acid 1.7, calcium 9.4, magnesium 1.6. Total bili 1.5, AST 23, ALT 20, alk phos 92. CPK 33. Troponin 0.1. CRP 45. BNP 203. Amylase 23, lipase is 10. Urinalysis shows 1+ protein, 2+ blood. Positive nitrite. 2+ LE, 3+ wbc's, 1+ rbc's, 1+ bacteria. Chest x-ray shows linear left lower lung zone and lateral costophrenic angle air space opacification. CT of the abdomen and pelvis shows findings suggestive of uncomplicated diverticulitis at least involving the distal descending colon and an 8-mm lobulated pulmonary nodule in the left lower lobe, new from 2010, some periportal edema but the gallbladder did not show any calcified gallstones and bile ducts were not distended. EKG done on 12/24/19 at 2:33 p.m. shows sinus tachycardia 107 beats per minute with no acute ischemic changes. No prior EKG to compare. ASSESSMENT AND PLAN: Ms. Marquez is a 74-year-old female with a past medical history of diverticulosis with a prior episode of diverticulitis, osteopenia, who presents to the emergency room with complaints of dysuria, abdominal pain, found to have urinary tract infection and mild diverticulitis. 1. Sepsis. The patient met sepsis criteria on admission with fever and tachycardia. The source is her urinary tract infection and diverticulitis. We will continue supportive care. 2. Diverticulitis. She has findings of diverticulitis on CT. I believe most of her symptoms are associated with her urinary tract infection. The patient will be started on low-fiber diet, and she will also receive Zosyn, that should cover both urinary tract infection and diverticulitis. 3. Urinary tract infection. CT of the abdomen did not show renal calculi or hydronephrosis. With her history of fever of 103 associated with severe shaking chills, I am concerned that she may be bacteremic. Blood cultures were already sent from the emergency room and we will continue Zosyn. 4. Troponin elevation. The patient has no complaints of chest pain, palpitation, or shortness of breath and her EKG shows no acute ischemic changes. First troponin was 0.1, and I suspect this is likely secondary to demand ischemia in the setting of sepsis. We will check serial troponins, and she will have a transthoracic echocardiogram looking for wall motion abnormalities. 5. Hypomagnesemia/hypokalemia. We will replete. 6. DVT prophylaxis: The patient has score of 3 on the DVT Prophylaxis Risk Assessment Guide. She will be started on subcutaneous heparin. 7. Code status is full. TIME SPENT: Approximately 60 minutes was spent on patient interview, medical records review, physical examination to complete this admission, more than half this time was spent [id number] with the patient and coordination of care. [id number]/[facility] #: [id number] [facility]
[2019-12-24] MEDS: KCL 10 MEQ/50 ML IVPREMIX* 10 MEQ/50 ML BAG IV SCH ×3 (20:38→23:00)
[2019-12-24 21:41] LABS: Troponin I 0.38 ng/mL (<0.03)
[2019-12-24] MEDS: Heparin VIAL(*) 5000 UNITS/ML VIAL (FIVE THOUSAND) SUBCUT SCH (23:00)
[2019-12-25] MEDS: ZOSYN 3.375 GM Q8H per EXTENDED INFUSION IVPB SCH ×8 (00:30→21:55)
[2019-12-25 00:56] LABS: Troponin I 0.32 ng/mL (<0.03)
[2019-12-25] MEDS: Heparin VIAL(*) 5000 UNITS/ML VIAL (FIVE THOUSAND) SUBCUT SCH ×3 (06:27→21:56)
[2019-12-25 07:07] LABS: ABS Eosinophils 0.1 10^3/ul (0-0.6); ABS Neutrophils 8.5 10^3/ul (1.5-7.7); Eosinophil % 0.5 %; Hematocrit 35 % (35-47); Hemoglobin 11.9 g/dL (12.0-16.0); Lymphocyte % 9.7 %; Mean Corpuscular HGB Conc 34 g/dL (31-36); Mean Corpuscular Hemoglobin 30 pg (27-31); Mean Corpuscular Volume 90 fL (80-97); Mean Platelet Volume 10.8 fL (7.4-10.4); Platelet Count 155 10^3/uL (150-450); Red Blood Count 3.93 10^6 /uL (3.70-4.87); Red Cell Distribution Width 15 % (10-15); White Blood Count 10.7 10^3/uL (3.5-10.8)
[2019-12-25 07:21] LABS: BUN/Creatinine Ratio 26.8 (8-20); Calcium 8.4 mg/dL (8.6-10.3); EGFR African American 127.4 (>60); EGFR Non-African American 105.3 (>60); Potassium 3.5 mmol/L (3.5-5.0)
--- NOTE | 2019-12-25 10:28 | ECHO ---
*[facility]* [place] [address] Fax #: [phone] Transthoracic Echocardiogram Patient: Gricelda Marquez : 1945 Study Date: 12/25/2019 Age: 74 Gender: F HR: 71 bpm Height: 62 in /157.5 cm BSA: 1.49 m^2 Weight: 111.8 lb /50.8 kg BMI: 20.5 kg/m^2 *Underliner: * Georgiana Hall RDCS RN *Referring Physician: * Bell NewsomeReading Physician: * Kj Alvarenga MD Indications: Elevated troponin levels. SOB. History: Diverticulosis. Osteopenia. Conclusions Summary: - Left ventricle: Systolic function is normal. The estimated ejection fraction is 60-65%. Wall motion is normal; there are no regional wall motion abnormalities. - Right ventricle: Systolic function is normal. - Mitral valve: There is mild to moderate regurgitation. - Aortic valve: The findings are consistent with mild stenosis. The peak systolic velocity is 2.1 m/sec. - Tricuspid valve: There is moderate-severe regurgitation. - Ascending aorta: The ascending aorta is mild-moderately dilated at 4.3 cm. - Pulmonary arteries: Systolic pressure is mildly increased, estimated to be 42 mm Hg. - Study data: No prior study is available for comparison. Study data: Transthoracic echocardiogram. Procedure: Transthoracic echocardiography was performed. Image quality was fair. Complete 2D, spectral Doppler, and color flow Doppler. Location: Bedside. Patient status: Observation. Patient room number: 450-01. No prior study is available for comparison. Findings Left ventricle: The cavity size is trivially reduced. Wall thickness is normal. Systolic function is normal. The estimated ejection fraction is 60-65%. Wall motion is normal; there are no regional wall motion abnormalities. There is no consistent Doppler evidence of clinically significant diastolic dysfunction. Right ventricle: The cavity size is normal. Systolic function is normal. Left atrium: The atrium is normal in size. Right atrium: The atrium is normal in size. Mitral valve: The leaflets are mildly thickened. There is no evidence of stenosis. There is mild to moderate regurgitation. Aortic valve: Not well visualized. The leaflets are mildly thickened. The findings are consistent with mild stenosis. There is no significant regurgitation. Tricuspid valve: The leaflets are normal thickness. There is no evidence of stenosis. There is moderate-severe regurgitation. Pulmonic valve: Not well visualized. There is no evidence of stenosis. There is trace regurgitation. Aorta: Aortic root: The aortic root is not dilated. Ascending aorta: The ascending aorta is mild-moderately dilated at 4.3 cm. Aortic arch: The aortic arch is not dilated. Pericardium: There is no significant pericardial effusion. Pulmonary arteries: Not well visualized. Systolic pressure is mildly increased, estimated to be 42 mm Hg. Systemic veins: Inferior vena cava: The vessel is dilated. There is (>= 50%) respiratory change in the IVC dimension. Measurements Left ventricle Value Ref Aortic valve Value Ref RACHEAL, LAX (L) 3.7 cm 3.8 - 5.2 Mango diam, ED 1.6 cm ---- ESD, LAX 2.6 cm 2.2 - 3.5 Peak v, S 2.1 m/sec ---- FS, LAX 29 % 27 - 45 VTI, S 43.8 cm ---- PW, ED (H) 1.0 cm 0.6 - 0.9 Mean grad, S 10.0 mm Hg ---- IVS/PW, ED 1 Peak grad, S 18.0 mm Hg ---- E', lat mango, TDI 10.2 cm/sec >=10.0 LVOT/AV, VTI ratio 0.45 --- - E/e', lat mango, 8 CLARENCE, VTI 1.30 cm^2 ---- TDI CLARENCE, Vmax 1.40 cm^2 ---- E', med mango, TDI 8.9 cm/sec >=7.0 E/e', med mango, 9 Mitral valve Value Ref TDI Peak E 0.78 m/sec ---- E', avg, TDI 9.6 cm/sec Peak A 0.93 m/sec ---- E/e', avg, TDI 8 <=14 Decel time 208 ms --- - Peak grad, D 2.4 mm Hg ---- LVOT Value Ref Peak E/A ratio 0.8 ---- Diam, S 1.90 cm Area 2.8 cm^2 Pulmonic valve Value Ref Peak ari, S 1.03 m/sec Peak v, S 0.8 m/sec ---- VTI, S 19.6 cm Peak grad, S 3.0 mm Hg ---- Mean grad, S 2 mm Hg SV 56 ml Tricuspid valve Value Ref SV/bsa 38 ml/m^2 Peak RV-RA grad, S 34 mm Hg ---- Max TR ari 2.9 m/sec ---- Ventricular septum Value Ref IVS, ED (H) 1.0 cm 0.6 - 0.9 Aortic root Value Ref Root diam 3.4 cm <3.8 Right ventricle Value Ref RACHEAL, LAX 2.8 cm Ascending aorta Value Ref RACHEAL minor ax, A4C 2.9 cm 1.9 - 3.5 AAo AP diam, S 4.3 cm ---- mid Pressure, S 42 mm Hg Aortic arch Value Ref Arch diam 2.5 cm ---- Left atrium Value Ref AP dim, ES 3.20 cm 2.70 - Decending aorta Value Ref 3.80 Olivia peak ari 0.58 m/sec ---- ML dim, A4C 4.2 cm SI dim, A4C 4.4 cm Pulmonary artery Value Ref Vol/bsa, ES, 1-p 26 ml/m^2 11 - 40 Pressure, S 42.0 mm Hg ---- A4C Vol/bsa, ES, A/L 33 ml/m^2 16 - 34 Inferior vena cava Value Ref Diam 2.6 cm ---- Right atrium Value Ref ML dim, ES, A4C 3.8 cm 2.6 - 4.4 SI dim, ES, A4C 4.5 cm 3.4 - 5.3 Estimated RAP 8 mm Hg Legend: (L) and (H) nithya values outside specified reference range. Prepared and electronically signed by Kj Alvarenga MD 12/25/2019 10:28
[2019-12-25] MEDS ORDERED: NS 0.9% 1000 ML** 1,000 ML IV ONE (13:18)
[2019-12-25] MEDS: Lactobacillus Acidophilus* 1 TAB PO SCH (17:42)
[2019-12-25 17:49] LABS: Magnesium 2.1 mg/dL (1.9-2.7)
--- NOTE | 2019-12-25 20:10 | PN ---
Subjective Date of Service: 12/25/19 Interval History: Is having no urinary symptoms. Abdominal pain is mild, denies nausea or vomiting , though reports having had 4 liquid BMs this morning, which is new for her. Denies chest pain, palpitations, shortness of breath. Family History: Unchanged from Admission Social History: Unchanged from Admission Past Medical History: Unchanged from Admission Objective Active Medications: Acetaminophen (Tylenol Tab*) 650 mg PO Q6H PRN PRN Reason: MILD PAIN or TEMP > 100.4 Last Admin: 12/24/19 18:29 Dose: 650 mg Heparin Sodium (Porcine) (Heparin Vial(*)) 5,000 units SUBCUT Q8HR [facility] Last Admin: 12/25/19 13:02 Dose: 5,000 units Sodium Chloride (Ns 0.9% 1000 Ml) 1,000 mls @ 100 mls/hr IV PER RATE [facility] Piperacillin Sod/Tazobactam (Sod 3.375 gm/ Sodium Chloride) 100 mls @ 25 mls/ hr IVPB Q8H [facility] Last Admin: 12/25/19 14:57 Dose: 25 mls/hr Lactobacillus Rhamnosus (Lactobacillus Acidophilus*) 1 tab PO DAILY [facility] Last Admin: 12/25/19 17:42 Dose: 1 tab Pharmacy Consult (Zosyn Per Pharmacy*) 1 note FOLLOW UP .ZOSYN PER PHARMACY [facility] Prochlorperazine Edisylate (Compazine Inj*) 5 mg IV Q6H PRN PRN Reason: NAUSEA/VOMITING Vital Signs - 8 hr 12/25/19 15:00 Temperature 99.2 F Pulse Rate 74 Respiratory 20 Rate Blood Pressure 116/66 (mmHg) O2 Sat by Pulse 92 Oximetry Oxygen Devices in Use Now: None Appearance: This is a well developed female seen sitting up in bed, no acute distress noted. Eyes: No Scleral Icterus, PERRLA Ears/Nose/Mouth/Throat: NL Teeth, Lips, Gums, Clear Oropharnyx, - - Mucous membranes slightly dry. Neck: NL Appearance and Movements; NL JVP, Trachea Midline Respiratory: Symmetrical Chest Expansion and Respiratory Effort, Clear to Auscultation, - - Diminished in bases Cardiovascular: NL Sounds; No Murmurs; No JVD, RRR, No Edema Abdominal: NL Sounds; No Tenderness; No Distention Lymphatic: No Cervical Adenopathy Extremities: No Edema, No Clubbing, Cyanosis Skin: No Rash or Ulcers, No Nodules or Sclerosis Neurological: Alert and Oriented x 3 Lines/Tubes/Other Access: Clean, Dry and Intact Peripheral IV Result Diagrams: 12/25/19 06:30 12/25/19 06:30 Microbiology and Other Data: Microbiology 12/25/19 15:30 Stool Gross Appearance - Final Stool C. difficile DNA Amplification - Final 027 Presumptive NEGATIVE Toxigenic C.diff NEGATIVE Stool Occult Blood (MARIEL) - Final 12/24/19 13:57 Aerobic Blood Culture - Preliminary Blood Venous No Growth Day 1 Anaerobic Blood Culture - Preliminary No Growth Day 1 12/24/19 14:24 Aerobic Blood Culture - Preliminary Blood Venous No Growth Day 1 Anaerobic Blood Culture - Preliminary No Growth Day 1 12/24/19 15:31 Urine Culture - Preliminary Urine Escherichia Coli Assess/Plan/Problems-Billing Assessment: This is a 74 year old female with a past medical history significant for diverticulosis and osteopenia who was admitted 12/24/19 for UTI and diverticulitis. - Patient Problems (1) UTI (urinary tract infection) Current Visit: Yes Status: Acute Comment: -Is having no symptoms, but urine culture is positive for E. coli. Continue treating with zosyn. -Temperature has gone as high as 99.2F, improved from yesterday, can likely go home in AM with transisiotn to oral ABX. (2) Diverticulitis Current Visit: Yes Status: Acute Code(s): K57.92 - DVTRCLI OF INTEST, PART UNSP, W/O PERF OR ABSCESS W/O BLEED SNOMED Code(s): 994348687 Comment: -Is having loose stools today after initiation of zosyn. Negative for CDIFF. Started lactobacillus. Tolerating low residue diet, no nausea. -Continue zosyn. (3) Elevated troponin Current Visit: Yes Status: Acute Code(s): R79.89 - OTHER SPECIFIED ABNORMAL FINDINGS OF BLOOD CHEMISTRY SNOMED Code(s): 300536372 Comment: - Peaked at 0.34. Is having no S&S of ACS. Likely due to demand. (4) Electrolyte disturbance Current Visit: Yes Status: Acute Code(s): E87.8 - OTH DISORDERS OF ELECTROLYTE AND FLUID BALANCE, NEC SNOMED Code(s): 049050675 Comment: -Intially had hypokalemia and hypomagnesemia, which is now resolved. (5) DVT prophylaxis Current Visit: Yes Status: Acute Code(s): Z29.9 - ENCOUNTER FOR PROPHYLACTIC MEASURES, UNSPECIFIED SNOMED Code(s): 865190180 Comment: -Continue heparin SQ (6) Full code status Current Visit: Yes Status: Acute Code(s): Z78.9 - OTHER SPECIFIED HEALTH STATUS SNOMED Code(s): 210812780 Status and Disposition: Condition: Fair Dispo: Admit OBV to 4S. Attending: Ana Maria De Leon
[2019-12-26] MEDS: Acetaminophen TAB* 325 MG PO PRN (03:39)
[2019-12-26] MEDS: ZOSYN 3.375 GM Q8H per EXTENDED INFUSION IVPB SCH ×4 (06:19→14:28)
[2019-12-26] MEDS: Heparin VIAL(*) 5000 UNITS/ML VIAL (FIVE THOUSAND) SUBCUT SCH ×2 (06:20→12:45)
[2019-12-26] MEDS: Lactobacillus Acidophilus* 1 TAB PO SCH (07:24)
[2019-12-26 12:17] VITALS: BP 128/81
--- NOTE | 2019-12-26 21:07 | DS ---
CC: Dr. Chelsea Velazco * DISCHARGE SUMMARY: DATE OF ADMISSION: 12/24/19 DATE OF DISCHARGE: 12/26/19 PRIMARY CARE PROVIDER: Dr. Chelsea Velazco. DISPOSITION AT DISCHARGE: Home. CONDITION ON DISCHARGE: Stable. DISCHARGE DIAGNOSES: 1. Acute diverticulitis. 2. Extended-spectrum beta-lactamase associated Escherichia coli. 3. Troponin elevation up to 0.39, likely was a demand ischemia. 4. Tkhm-cm-enoiycfc mitral regurgitation, mild pulmonary hypertension noted on echocardiogram, as well as moderate tricuspid regurgitation. 5. An 8-mm lung nodule in the left lung. MEDICATIONS AT DISCHARGE: Include: 1. Vitamin D3 1000 units daily. 2. Vitamin B12 1000 mcg daily. 3. Probiotic 1 capsule a day. 4. Multivitamin 1 tablet daily. 5. Trazodone 50 mg at bedtime. 6. Metronidazole 500 mg 3 times a day for total of 7 days, then stop. 7. Bactrim DS 1 tablet b.i.d. for a total of 7 days, then stop. 8. Premarin cream 1 application nightly. LABORATORY DATA AND STUDIES PERFORMED DURING THE HOSPITAL STAY: Included, the urine cultures were positive for over 100,000 colonies of ESBL E. coli with the bacteria being sensitive to Bactrim, as also nitrofurantoin and levofloxacin. Stool cultures were negative for C. difficile. Stool occult blood was negative. CT of abdomen and pelvis obtained on admission, impression: "Suspect uncomplicated diverticulitis at least involving the distal descending colon. Fat planes surrounding the sigmoid colon are effaced and difficult to evaluate. Colonoscopy following symptomatic resolution is suggested. An 8-mm lobulated pulmonary nodule in the left lower lobe is new from 2009. An dedicated chest CT is required to guide Fleischner criteria recommendation, unknown multiplicity. Periportal edema." The patient's transthoracic echocardiogram obtained at admission showed EF of 60 % to 65% with no wall motion abnormality. The mitral valve had mild-to- moderate regurgitation; aortic valve had mild stenosis; tricuspid valve, there is moderate- to-severe regurgitation. The ascending aorta is mildly to moderately dilated at 4.3 cm. Pulmonary systolic pressure at 42 mm, which is mildly increased. On 12/25/19, sodium of 138, potassium of 3.5, chloride 111, carbon dioxide 22, BUN 15, creatinine is 0.56. CBC: White blood cell count of 10.7, hemoglobin 11.9, hematocrit 35, and platelets of 155. Blood cultures were negative by the date of discharge. The patient's troponin peaked at 0.39. HOSPITALIZATION COURSE: Gricelda Marquez is a 74-year-old female, who presented to the hospital complaining of right-sided abdominal pain, diarrhea, nausea, and suprapubic tenderness as well as dysuria symptoms. The patient stated that she was on a vacation in [place] and returned approximately a week ago. She stated that when she is in formerly [facility], the skin is so dry that she actually uses a mineral oil for personal hygiene and does not use soap. She started having dysuria symptoms approximately a couple of days prior to her hospital stay. On the day when she presented to the hospital, she had a temperature of 103 degrees at home. She complained of suprapubic tenderness, the right-sided abdominal pain and diarrhea as well as symptoms of severe frequency and pain with urination. She was admitted to the hospital and treated with Zosyn. Eventually, her urine cultures were positive ESBL E. coli. The CT as above showed mild diverticulitis. Her symptoms all resolved by the time of discharge after treatment with Zosyn. She is going to be placed on Bactrim and Flagyl to treat her diverticulitis, and Bactrim is also a good choice for the patient's ESBL E. coli UTI treatment. Although she was asymptomatic from cardiac standpoint, her troponin was up to 0.39. A transthoracic echocardiogram showed some valvular abnormalities, but no wall motion abnormality to suggest ischemia. It is suspected that the patient had demand ischemia from her UTI. Nevertheless, it is recommended for the patient to be at some point evaluated by collection technician in regards of her valvular abnormalities and to be evaluated with treadmill stress test for possibility of cardiac ischemia. The patient also was noted to have an 8-mm left lung nodule, for which she needs to have a followup CT dedicated to the chest only. In regards of the patient's problems with frequent UTIs and vaginal dryness, it was recommended for the patient to be using Premarin cream, which was prescribed. PHYSICAL EXAM AT THE TIME OF DISCHARGE: Blood pressure 148/81, heart rate of 67 and regular, respiratory rate 20, oxygen saturation 99% on room air, temperature 98.2. General: The patient is a pleasant 74-year-old female who is in no acute distress. The patient is alert and oriented x3. HEENT: Head atraumatic, normocephalic. Eyes: Pupils equal and reactive to light and accommodation. Oropharynx clear. Mucosa moist. Neck: Supple. No JVD. No bruits bilaterally. Cardiovascular: Regular rate and rhythm. No murmur. Respiratory: Clear to auscultation bilaterally. Abdomen: Soft, nontender. Bowel sounds present in all 4 quadrants. Extremities: There is no edema. Pulses +2 bilaterally. No clubbing or cyanosis. Neuro Evaluation: Speech clear. Cranial nerves II through XII grossly intact. Motor strength is 5/5 bilaterally. FOLLOWUP: At discharge, the patient is recommended to follow up with Dr. Chelsea Velazco in approximately 4 to 7 days. Please note this is a short summary of the patient's hospital stay. Please refer to further medical records for details. [id number]/CPS #: [id number] MTDD
== END 2019-12-26 15:15 | disposition home or self-care (01) | DRG 690 ==
LOC: ED 13:34 → MEDTELE 17:47 → OBSVTOIN 12-25 11:00
PROVIDERS: ADMIT Internal Medicine; ATTEND Internal Medicine
DX: N39.0 Urinary tract infection, site not specified (principal); K57.32 Diverticulitis of large intestine without perforation or abscess without bleeding; I24.8 Other forms of acute ischemic heart disease; Z16.12 Extended spectrum beta lactamase (ESBL) resistance; B96.20 Unspecified Escherichia coli [E. coli] as the cause of diseases classified elsewhere; M85.80 Other specified disorders of bone density and structure, unspecified site; E83.42 Hypomagnesemia; E87.6 Hypokalemia; I27.20 Pulmonary hypertension, unspecified; I34.0 Nonrheumatic mitral (valve) insufficiency; R91.1 Solitary pulmonary nodule; G43.909 Migraine, unspecified, not intractable, without status migrainosus; Z87.891 Personal history of nicotine dependence
CPT/HCPCS: 36415; 71045; 74177; 80048; 80053; 81003; 81015; 82150; 82272; 82550; 83605; 83690; 83735; 83880; 84484; 85025; 85610; 85730; 86140; 87040; 87077; 87086; 87186; 87493; 93005; 93306; 96365; 96372; 99285; A9270-GY; G0378; J0696; J1644; J2543; J3475; J3480; Q9967